=== PATIENT | female | born 1945 | race Caucasian/White ===

== ENCOUNTER → 2024-05-29 | Outpatient (CLI) | payer MEDICARE ==
[2024-05-29 15:45] LABS: ALT 19 U/L (8-44); AST 18 U/L (13-35); Chol/HDL Ratio 2.87 Ratio; LDL Cholesterol,Calculated 122.9 mg/dL (0.0-131.0); VLDL Calculation 17.26 mg/dL (5.00-40.00)
== END | disposition home or self-care (01) ==
LOC: LABWHC1 10:27
PROVIDERS: ATTEND Internal Medicine
DX: E78.00 Pure hypercholesterolemia, unspecified (principal); Z79.899 Other long term (current) drug therapy
CPT/HCPCS: 36415; 80061; 84450; 84460